=== PATIENT | male | born 1955 | race Caucasian/White ===

== ENCOUNTER 2017-03-22 22:45 | Inpatient (IN) | payer BC ==
--- NOTE | ~2017-03-22 | DS ---
Discharge Summary [address] [place]. [address] NAME: VIRIDIANA JARRELL : 59 STATUS : ADM IN [facility]#: [id number] AGE: 61 ADM/REG DATE : 03/23/17 MR#: [id number] REPORT SERV DATE: 03/25/17 DICTATED BY: DARWIN FOY DATE: 03/25/17 REPORT STATUS : Draft TRANSCRIBED BY: MODL DATE: 03/25/17 ADMISSION DATE: 03/23/2017 DISCHARGE DATE: 03/25/2017 FINAL HOSPITAL DIAGNOSES: 1. Pneumonia, community acquired. 2. Syncope, resolved. 3. Hypertension. CONSULTATIONS: None. PROCEDURES: 1. Echocardiogram done on the shows systolic function of 55%, diastolic function normal, right ventricular systolic function normal. No significant valvular dysfunction. No previous study for comparison. 2. CT scan of the abdomen and pelvis done on the showing fluid in the small bowel suggestive of enteritis, bibasilar patchy infiltrates consistent with acute pneumonia. 3. CT of the chest done on the showing bibasilar lung infiltrates with interstitial thickening. Differential would be pneumonia or inflammatory lung disease correlation with clinical history and lab value. No masses or adenopathy, fatty infiltration of the liver. CURRENT PHYSICAL FINDINGS AND HPI: Please see initial dictated H and P by Dr. Meyers. In brief, the patient is a 61-year-old male with above medical history, presented with fever, malaise, and syncope. Initial vital signs, BP was 146/71, temperature was 98.0, he had a T-max of 101 on the . He has had no further temperature spikes. Initial procalcitonin was 1.14, repeated at 2.17 on the , although the patient shows significant clinical improvement. Initial electrolytes on the were unremarkable including a normal mag and K. LFTs were normal. Lipase was normal. Troponin was less than 0.02 x2 draws. TSH was normal. BNP was normal. Initial lactate was elevated at 2.5, repeat several hours later, 1.8. Initial white count was 10.5, hitting a high of 12.8 on the , 9.4 on the , no significant anemia. Strep antigens and Legionella antigens were negative. Urinalysis was negative. Blood cultures to date are negative. Initial EKG was unremarkable and telemetry was unremarkable. HOSPITAL COURSE: The patient was admitted with the above complaints with diagnosis of pneumonia. He was started on IV fluids, antibiotics including Rocephin and Zithromax. Cultures were drawn. His Norvasc was held. He did not require supplemental O2 and was feeling better by the next hospital day when I saw him. He sounded as if he had a vasovagal episode with his syncope as he had taken some outpatient doxycycline, felt nauseated in addition to his febrile illness and generalized malaise and had a brief loss of conscious episode. An echocardiogram was ordered just to rule out any structural heart disease. It may predispose him to syncope and this was normal. When he had the recurrent fever spike, a repeat procalcitonin was drawn but was felt compatible with his clinical course. As already mentioned, his telemetry, echocardiogram and troponins were all normal throughout the Discharge Summary [address] [address] NAME: VIRIDIANA JARRELL : 59 STATUS : ADM IN [facility]#: [id number] AGE: 61 ADM/REG DATE : 03/23/17 MR#: [id number] REPORT SERV DATE: 03/25/17 DICTATED BY: DARWIN FOY DATE: 03/25/17 REPORT STATUS : Draft TRANSCRIBED BY: RADHA DATE: 03/25/17 remainder of his hospital stay. The patient was ambulatory. He had some initial constipation that resolved. He was tolerating p.o. He was having no further symptoms and felt stable for discharge. DISPOSITION: He is discharged home. He will resume his aspirin 81 mg. He will resume his Norvasc 5, fish oil 1000, garlic tabs and Visine. He was given a prescription for Omnicef 300 b.i.d. for seven days to complete a 10-day course of treatment. He was asked to follow up with Dr. Astorga, his primary care physician in 10-14 days to make sure he has had clinical resolution. To repeat his chest x-ray to make sure the pneumonia has cleared, and the patient voices understanding. He also has pending lab work with Dr. Astorga for possible tick exposure which is why the doxycycline was started. I would recommend patient check with Dr. Astorga on that lab work to see if it is available and decide whether he needs to continue the doxycycline or not. Certainly, it could have contributed to his nausea and vomiting when he took the initial dose prior to admission. He is also going to discuss outpatient stress testing with his primary care physician at that follow up. The patient has not had any anginal symptoms. He had no dysrhythmias. He had a normal echocardiogram. I did not feel that he needed an inpatient stress test as his syncope was more likely related to vasovagal than his acute illness and other factors, but he will discuss risk stratification with his PCP if it needs to be done at a later date. The patient is to return for any significant complications. DICTATED BY: Joellen Rosario/RADHA Darwin Foy M.D. / [id number] CC: Joellen Rosario M.D.
--- NOTE | ~2017-03-22 | HP ---
History And Physical [address] [place]. [address] NAME: VIRIDIANA JARRELL : 59 STATUS : ADM IN [facility]#: [id number] AGE: 61 ADM/REG DATE : 03/23/17 MR#: [id number] REPORT SERV DATE: 03/23/17 DICTATED BY: ÓSCAR MEYERS DATE: 03/23/17 REPORT STATUS : Draft TRANSCRIBED BY: MODL DATE: 03/23/17 DATE OF ADMISSION: 03/23/2017 CHIEF COMPLAINT: A 61-year-old male, presenting with shortness of breath and syncope. HISTORY OF PRESENT ILLNESS: The patient's history was obtained through careful interview with the patient, coupled with review of [facility] medical records. The patient earlier in the day leading up to admission, had been working with some hay and he noticed that he felt ill. He had palpitations, subjective fevers and chills, measured temperature up to 100.1. Then, as he came back home in the evening to rest, he felt lightheaded and passed out. He was completely unresponsive for about five minutes and his called the ambulance to come evaluate him. He has had nausea and vomiting today, myalgias as if he had the flu. He also describes shortness of breath. He has had slight chest discomfort at the base of his lungs, a burning quality, exacerbated by deep breathing, 4/10 severity. He has also had a new onset diffuse headache, aching quality, 4/10 severity. His cough has been nonproductive. REVIEW OF SYSTEMS: Otherwise, a 14-point review of systems was obtained and was negative. PAST MEDICAL HISTORY: 1. Pneumonia, 2006. 2. Hypertension. 3. Childhood bronchitis. 4. No cardiac disease. PAST SURGICAL HISTORY: 1. Appendectomy. 2. Biceps tendon surgery. ALLERGIES: NO KNOWN DRUG ALLERGIES. SOCIAL HISTORY: Quit smoking in his 20s. No alcohol abuse. He is . Lives in [place], [place]. Retired. 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 FAMILY HISTORY: Colon cancer, rheumatoid arthritis, diabetes, and heart disease. History And Physical [address] [address] NAME: VIRIDIANA JARRELL : 59 STATUS : ADM IN [facility]#: [id number] AGE: 61 ADM/REG DATE : 03/23/17 MR#: [id number] REPORT SERV DATE: 03/23/17 DICTATED BY: ÓSCAR MEYERS DATE: 03/23/17 REPORT STATUS : Draft TRANSCRIBED BY: RADHA DATE: 03/23/17 CURRENT MEDICATIONS: Unknown at this time. We have requested a medication list to be obtained by pharmacy. PHYSICAL EXAMINATION: VITAL SIGNS: Temperature 102.6; pulse 109; blood pressure 94/36 initially with IV fluid boluses, it improved to 130/80; respiratory rate 18; and O2 saturation 95% on room air. GENERAL: A pleasant, cooperative male. No evidence of distress at this time. HEENT: Pupils equal, round, and reactive to light. No conjunctival pallor. No scleral icterus. Nares are patent. Oropharynx is clear of obstruction. Moist mucous membranes. NECK: Trachea midline. No thyromegaly. LYMPH: No cervical lymphadenopathy. No supraclavicular lymphadenopathy. RESPIRATORY: The patient has minimal crackles and rhonchi on exam. I do not appreciate any focal egophony. No wheezes. No rales. The patient has a labored respiratory effort though. CARDIOVASCULAR: Tachycardic. Regular rhythm. No murmurs, rubs, or gallops. No extremity edema is appreciated. ABDOMEN: Soft, nontender, nondistended. Normal bowel sounds auscultated throughout. No hepatosplenomegaly. DERMATOLOGICAL: Warm and dry extremities. No pallor. No cyanosis. PSYCHIATRIC: Normal affect. Good mood. Alert and oriented x3. LABORATORY DATA: White blood cell count 10.5, hemoglobin 17.6, hematocrit 51.6, and platelets 188. Sodium 136, potassium 3.9, chloride 102, bicarb 26, BUN 15, creatinine 1.03, glucose 125, lactic acid 2.5, INR 1.1. Troponin negative. Liver enzymes within normal limits. Urinalysis negative for infection. STUDIES: 1. EKG by my own evaluation shows sinus tachycardia. 2. CT scan of the abdomen and pelvis shows no acute intraabdominal process but does show bilateral basilar pneumonia. ASSESSMENT AND PLAN: 1. Severe sepsis with shock with syncopal episode. Lactic acid 2.5. Shock, tachycardia, fever of 102.6. Check blood cultures. Place on appropriate IV antibiotics. 2. Bilateral pneumonia. Check blood cultures. Place on IV antibiotics. 3. Headache. Monitor. KPL/MODL Óscar Meyers M.D. / [id number] CC: History And Physical [address] [address] NAME: VIRIDIANA JARRELL : 59 STATUS : ADM IN [facility]#: [id number] AGE: 61 ADM/REG DATE : 03/23/17 MR#: [id number] REPORT SERV DATE: 03/23/17 DICTATED BY: ÓSCAR MEYERS DATE: 03/23/17 REPORT STATUS : Draft TRANSCRIBED BY: RADHA DATE: 03/23/17 MD Homer Bojorquez M.D.
[~2017-03-22 22:45] MED LIST: ALEVE220 MG PO; ASAB PO; MULTIPLE VIT PO
[2017-03-22 23:34] LABS: BASOPHILS 0.1 %; BASOPHILS ABSOLUTE 0.01 10/3/uL (0.0-0.16); EOSINOPHILS 0 %; ER CBC TAT 0 Hrs 08 Mins; HEMATOCRIT 51.6 % (40.0-51.0); HEMOGLOBIN 17.6 g/dL (13.6-17.8); IMMATURE GRANULOCYTES 0.3 %; IMMATURE GRANULOCYTES ABSOLUTE 0.03 10/3/uL (0.0-0.11); LYMPHOCYTES 4.2 %; LYMPHOCYTES ABSOLUTE 0.44 10/3/uL (0.67-4.30); MANUAL DIFF NO %; MEAN CORPUS HGB CONC 34.1 g/dL (32.0-36.0); MEAN CORPUSCULAR HEMOGLOB 29.7 pg (26.0-34.0); MEAN PLATELET VOLUME 11.9 fL (9.2-13.0); MONOCYTES 2.4 %; MONOCYTES ABSOLUTE 0.25 10/3/uL (0.21-1.20); PLATELET COUNT 188 10/3/uL (150-400); RBC DISTRIBUTION WIDTH 13.3 % (12.0-16.0); RED CELL COUNT 5.93 10/6/uL (4.7-6.1); WHITE BLOOD CELLS 10.5 10/3/uL (4.5-10.5)
[2017-03-22 23:39] LABS: INTERNATIONAL NORMAL RATI 1.1 UNITS (-); PROTIME (NOT ORD) 13.7 SEC (12.0-14.5)
[2017-03-22 23:40] LABS: PARTIAL THROMBO TIME 25.8 SEC (22.5-37.2)
[2017-03-22 23:48] LABS: BUN (BLOOD UREA NITROGEN) 15 MG/DL (6-23); CALCIUM, SERUM 9.3 MG/DL (8.5-10.4); CHEST PAIN PROFILE TAT 0 Hrs 22 Mins; CHLORIDE, SERUM 102 MMOL/L (96-112); CO2 (CARBON DIOXIDE) 26 MMOL/L (24-34); CREATININE 1.03 MG/DL (0.70-1.30); GFR AFRICAN AMERICAN 92 ML/MIN (>=60); GFR NON AFRICAN AMERICAN 79 ML/MIN (>=60); GLUCOSE, SERUM 125 MG/DL (60-99); POTASSIUM, SERUM 3.9 MMOL/L (3.5-5.3); SODIUM, SERUM 136 MMOL/L (135-148); TROPONIN I <0.02 NG/ML (<0.05)
[2017-03-23 02:27] LABS: LACTATE 2.5 MMOL/L (0.3-2.4)
[2017-03-23 02:43] LABS: ASCORBIC ACID (UR NOT ORDER) NEG (NEG); BILIRUBIN, URINE NEGATIVE (NEG); KETONE, URINE TRACE MG/DL (NEG); LEUKOCYTE ESTERASE(NOT OR NEG (NEG); NITRITE (URINE) NEG (NEG); WBC (NOT ORDERED) (RFLEX) 2 (0-5)
[2017-03-23 03:37] LABS: ALBUMIN 3.3 G/DL (3.5-5.0); ALKALINE PHOSPHATASE 73 U/L (45-117); DIRECT BILIRUBIN 0.1 MG/DL (0.0-0.4); INDIRECT BILIRUBIN(NOT ORDER) 0.7 MG/DL (0.1-0.9); SGOT(AST) 19 U/L (5-40); SGPT(ALT) 24 U/L (5-65); TOTAL BILIRUBIN 0.8 MG/DL (0-1.2); TOTAL PROTEIN 6.6 G/DL (6.0-8.5)
[2017-03-23 04:05] LABS: PROCALCITONIN 1.14 ng/mL (<0.5)
[2017-03-23 06:12] LABS: BASOPHILS 0.1 %; BASOPHILS ABSOLUTE 0.01 10/3/uL (0.0-0.16); EOSINOPHILS 0 %; HEMOGLOBIN 15.3 g/dL (13.6-17.8); IMMATURE GRANULOCYTES 0.2 %; IMMATURE GRANULOCYTES ABSOLUTE 0.03 10/3/uL (0.0-0.11); LYMPHOCYTES 4.4 %; LYMPHOCYTES ABSOLUTE 0.56 10/3/uL (0.67-4.30); MEAN CORPUS HGB CONC 33.4 g/dL (32.0-36.0); MEAN CORPUSCULAR HEMOGLOB 29.1 pg (26.0-34.0); MEAN CORPUSCULAR VOLUME 87.1 fL (80-100); MONOCYTES 1.5 %; MONOCYTES ABSOLUTE 0.19 10/3/uL (0.21-1.20); NEUTROPHILS 93.8 %; NEUTROPHILS ABSOLUTE 12.01 10/3/uL (2.02-8.40); PLATELET COUNT 153 10/3/uL (150-400); RBC DISTRIBUTION WIDTH 13.4 % (12.0-16.0); RED CELL COUNT 5.26 10/6/uL (4.7-6.1); WHITE BLOOD CELLS 12.8 10/3/uL (4.5-10.5)
[2017-03-23 06:13] LABS: HEMATOCRIT 45.8 % (40.0-51.0); INTERNATIONAL NORMAL RATI 1.2 UNITS (-); MANUAL DIFF NO %; PARTIAL THROMBO TIME 25.5 SEC (22.5-37.2); PROTIME (NOT ORD) 14.7 SEC (12.0-14.5)
[2017-03-23 06:35] LABS: A/G RATIO 0.9 (0.7-1.9); ALBUMIN 3.2 G/DL (3.5-5.0); ALKALINE PHOSPHATASE 69 U/L (45-117); BUN (BLOOD UREA NITROGEN) 15 MG/DL (6-23); CALCIUM, SERUM 8.1 MG/DL (8.5-10.4); CHLORIDE, SERUM 103 MMOL/L (96-112); CO2 (CARBON DIOXIDE) 22 MMOL/L (24-34); CREATININE 0.96 MG/DL (0.70-1.30); GFR AFRICAN AMERICAN 100 ML/MIN (>=60); GFR NON AFRICAN AMERICAN 86 ML/MIN (>=60); GLOBULIN 3.5 G/DL (2.5-4.1); GLUCOSE, SERUM 107 MG/DL (60-99); POTASSIUM, SERUM 3.6 MMOL/L (3.5-5.3); SGOT(AST) 20 U/L (5-40); SGPT(ALT) 22 U/L (5-65); SODIUM, SERUM 135 MMOL/L (135-148); TOTAL BILIRUBIN 0.4 MG/DL (0-1.2); TOTAL PROTEIN 6.7 G/DL (6.0-8.5); TROPONIN I <0.02 NG/ML (<0.05); ULTRASENSITIVE TSH 0.383 MCIU/ML (0.358-3.740)
[2017-03-23 09:58] LABS: ASCORBIC ACID (UR NOT ORDER) NEG (NEG); BILIRUBIN, URINE NEGATIVE (NEG); KETONE, URINE NEGATIVE (NEG); LEUKOCYTE ESTERASE(NOT OR NEG (NEG); WBC (NOT ORDERED) (RFLEX) 1 (0-5)
[2017-03-23] MEDS ORDERED: GARLIC TAB PO (11:25)
[2017-03-23] MEDS ORDERED: NORV5 PO (11:25)
[2017-03-23] MEDS ORDERED: FISH-EPA1000 MG PO (11:25)
[2017-03-23] MEDS ORDERED: HALF81 PO (11:26)
[2017-03-23] MEDS ORDERED: VISINE-A EYE AL15 ML OPH (11:26)
[2017-03-24 05:59] LABS: BASOPHILS 0.1 %; BASOPHILS ABSOLUTE 0.01 10/3/uL (0.0-0.16); EOSINOPHILS 0.3 %; EOSINOPHILS ABSOLUTE 0.03 10/3/uL (0.0-0.53); HEMATOCRIT 41.3 % (40.0-51.0); HEMOGLOBIN 13.7 g/dL (13.6-17.8); IMMATURE GRANULOCYTES 0.2 %; IMMATURE GRANULOCYTES ABSOLUTE 0.02 10/3/uL (0.0-0.11); LYMPHOCYTES 15.2 %; LYMPHOCYTES ABSOLUTE 1.42 10/3/uL (0.67-4.30); MANUAL DIFF NO %; MEAN CORPUS HGB CONC 33.2 g/dL (32.0-36.0); MEAN CORPUSCULAR HEMOGLOB 28.9 pg (26.0-34.0); MEAN CORPUSCULAR VOLUME 87.1 fL (80-100); MEAN PLATELET VOLUME 11.9 fL (9.2-13.0); MONOCYTES 6.2 %; MONOCYTES ABSOLUTE 0.58 10/3/uL (0.21-1.20); PLATELET COUNT 146 10/3/uL (150-400); RED CELL COUNT 4.74 10/6/uL (4.7-6.1); WHITE BLOOD CELLS 9.4 10/3/uL (4.5-10.5)
[2017-03-25] MEDS ORDERED: OMNICEF300 PO (12:06)
== END 2017-03-25 15:36 | disposition home or self-care (01) | DRG 871 ==
LOC: ER 22:45 → 5NO 03-23 04:19
PROVIDERS: Emergency Medicine; Hospitalist; Internal Medicine; Specialist
DX: A41.9 Sepsis, unspecified organism (principal); J18.9 Pneumonia, unspecified organism; R65.21 Severe sepsis with septic shock; I10 Essential (primary) hypertension; R51 Headache; K59.00 Constipation, unspecified; Z79.82 Long term (current) use of aspirin; Z79.899 Other long term (current) drug therapy; Z87.891 Personal history of nicotine dependence
CPT/HCPCS: 71010; 71020; 71250; 74176; 80048; 80053; 80076; 81001; 83605; 83690; 83735; 83880; 84145; 84443; 84484; 85025; 85610; 85730; 87040; 87449; 93005; 96374; 99291; A9270-GY; C8929; J0456; J2405; Q9957